=== PATIENT | male | born 1940 | race Caucasian/White ===

== ENCOUNTER 2017-06-25 10:54 | Observation (INO) ==
[2017-06-25] MEDS ORDERED: ENOXAPARIN 30 MG/0.3 ML SYRINGE SUBCUT STA (11:27)
[2017-06-25] MEDS ORDERED: NITROGLYCERIN 2% OINT 1 INCH/GM PACK TOP STA (11:28)
[2017-06-25] MEDS ORDERED: NITROGLYCERIN 2% OINT 1 INCH/GM PACK TOP ONE (11:52)
[2017-06-25] MEDS ORDERED: ENOXAPARIN 100 MG/ML SYRINGE SUBCUT ONE (11:52)
[2017-06-25 11:55] LABS: Basophils % 0.1 % (0.0-0.8); Hematocrit 37.4 VOL% (42.0-52.0); Immature Granulocytes % 0.7 %; Lymphocytes # 1.5 10*3/uL (1.4-4.0); Lymphocytes % 11.2 % (21.2-54.2); Mean Corpuscular HGB Conc 34.8 GM/DL (32-36); Mean Corpuscular Hemoglobin 31 PG (27-34); Mean Corpuscular Volume 88.8 FL (87-102); Monocytes # 0.8 10*3/uL (0.11-0.8); Monocytes % 5.5 % (1.7-12.7); Neutrophils # 11.2 10*3/uL (1.4-7.4); Neutrophils % 82.5 % (38.7-73.9); Platelet Count 229 T/CUMM (130-400); Red Blood Count 4.21 MC/CUMM (3.8-5.5); Red Cell Distribution Width 13.4 % (9.3-17.3); White Blood Count 13.6 T/CUMM (4-12)
[2017-06-25 12:07] LABS: PT Patient Result 10.8 SECS; Partial Thromboplastin Time 24.6 SECS (0-40)
[2017-06-25] MEDS ORDERED: CLORAZEPATE 7.5 MG TABLET PO STA (12:15)
[2017-06-25] MEDS ORDERED: CLORAZEPATE 7.5 MG TABLET ONE (12:16)
[2017-06-25 12:40] LABS: Bilirubin,Total 0.6 MG/DL (0.2-1.0); Calcium 9.8 MG/DL (8.5-10.1); Osmolality,Calculated 293.3 MOS/KG (273-304); Potassium 5.1 MMOL/L (3.5-5.1); Total Protein 7.1 G/DL (6.4-8.3)
[2017-06-25] MEDS ORDERED: LORazepam 1 MG TABLET PO STA (14:07)
[2017-06-25] MEDS ORDERED: LORazepam 1 MG TABLET ONE (14:08)
[2017-06-25] MEDS ORDERED: ACETAMINOPHEN 325 MG TABLET PO PRN (15:25)
[2017-06-25] MEDS ORDERED: ONDANSETRON 4 MG/2 ML VIAL IV PRN (15:25)
[2017-06-25] MEDS ORDERED: DEXTROSE 50% 25 GM/50 ML VIAL IV PRN (17:37)
[2017-06-25] MEDS ORDERED: GLUCAGON 1 MG VIAL IM PRN (17:37)
[2017-06-25 17:53] LABS: Troponin I Only 0.128 NG/ML (0.00-0.045)
[2017-06-25] MEDS ORDERED: rOPINIRole 1 MG TABLET PO SCH (20:00)
[2017-06-25] MEDS ORDERED: SIMVASTATIN 40 MG TABLET PO SCH (21:00)
[2017-06-25] MEDS ORDERED: GABAPENTIN 400 MG CAPSULE PO SCH (21:00)
[2017-06-25] MEDS ORDERED: ASPIRIN EC 81 MG TABLET PO SCH (21:00)
[2017-06-25 21:24] LABS: Troponin I Only 0.097 NG/ML (0.00-0.045)
[2017-06-25] MEDS: INSULIN LISPRO 100 UNIT/ML SUBCUT SCH (21:45)
[2017-06-25] MEDS: ISOSORBIDE MONONITRATE 20 MG TABLET PO SCH (21:51)
[2017-06-25] MEDS: CARVEDILOL 25 MG TABLET PO SCH (21:52)
[2017-06-25] MEDS: GABAPENTIN 400 MG CAPSULE PO SCH (21:52)
[2017-06-25] MEDS: PANTOPRAZOLE 40 MG TABLET PO SCH (21:52)
[2017-06-25] MEDS: DOCUSATE SODIUM 100 MG CAPSULE PO SCH (21:52)
[2017-06-25] MEDS ORDERED: ZALEPLON 5 MG CAPSULE PO PRN (22:25)
[2017-06-25] MEDS ORDERED: FAMOTIDINE 20 MG TABLET PO SCH (22:30)
[2017-06-26 04:33] LABS: Basophils % 0.1 % (0.0-0.8); Eosinophils % 0.1 % (0.00-10.9); Hemoglobin 13.3 GM/DL (14.0-18.0); Immature Granulocytes % 0.6 %; Immature Granulocytes Absolute 0.09 #; Lymphocytes # 2.1 10*3/uL (1.4-4.0); Lymphocytes % 14.5 % (21.2-54.2); Mean Corpuscular HGB Conc 33.3 GM/DL (32-36); Mean Corpuscular Hemoglobin 30 PG (27-34); Mean Corpuscular Volume 90.7 FL (87-102); Mean Platelet Volume 9.1 FL (9.6-12.0); Monocytes # 0.9 10*3/uL (0.11-0.8); Monocytes % 6.1 % (1.7-12.7); Neutrophils # 11.3 10*3/uL (1.4-7.4); Neutrophils % 78.6 % (38.7-73.9); Platelet Count 262 T/CUMM (130-400); Red Blood Count 4.41 MC/CUMM (3.8-5.5); Red Cell Distribution Width 13.5 % (9.3-17.3); White Blood Count 14.3 T/CUMM (4-12)
[2017-06-26 05:05] LABS: Calcium 9.7 MG/DL (8.5-10.1); Osmolality,Calculated 289.4 MOS/KG (273-304); Potassium 4.3 MMOL/L (3.5-5.1); Risk Ratio 4.8; VLDL CHOLESTEROL 73.6 MG/DL
[2017-06-26] MEDS: INSULIN LISPRO 100 UNIT/ML SUBCUT SCH ×2 (08:00→13:45)
[2017-06-26] MEDS ORDERED: CLORAZEPATE 3.75 MG TABLET PO PRN (08:02)
[2017-06-26] MEDS ORDERED: hydroCHLOROthiazide 25 MG TABLET PO SCH (09:00)
[2017-06-26] MEDS: GABAPENTIN 400 MG CAPSULE PO SCH ×2 (09:00→13:45)
[2017-06-26] MEDS ORDERED: LOSARTAN 50 MG TABLET PO SCH (09:00)
[2017-06-26] MEDS ORDERED: OMEGA 3 ACID ETHYL ESTERS 1 GM CAPSULE PO SCH (09:00)
[2017-06-26] MEDS ORDERED: DIGOXIN 0.125 MG TABLET PO SCH (09:00)
[2017-06-26 12:05] VITALS: BP 174/75
[2017-06-26] MEDS: PANTOPRAZOLE 40 MG TABLET PO SCH (13:45)
[2017-06-26] MEDS: DOCUSATE SODIUM 100 MG CAPSULE PO SCH (13:45)
[2017-06-26] MEDS: ISOSORBIDE MONONITRATE 20 MG TABLET PO SCH (13:45)
[2017-06-26] MEDS: CARVEDILOL 25 MG TABLET PO SCH (13:45)
== END 2017-06-26 14:05 | disposition home or self-care (01) ==
LOC: N.ED 10:54 → N.EDINP 10:54 → N.TELES 15:25
PROVIDERS: ADMIT Internal Medicine; ATTEND Internal Medicine

== ENCOUNTER 2018-03-31 00:05 | Inpatient (IN) ==
[2018-03-31] MEDS ORDERED: ALBUTEROL/IPRATROPIUM 3 ML NEB RESP TX STA (00:21)
[2018-03-31] MEDS ORDERED: ACETAMINOPHEN 500 MG TABLET PO STA (00:21)
[2018-03-31] MEDS ORDERED: CEFTAROLINE 600 MG in SODIUM CHLORIDE 0.9% 100 ML IV STA (00:23)
[2018-03-31 00:51] LABS: Basophils % 0.2 % (0.0-0.8); Eosinophils # 0.1 10*3/uL (0.0-0.87); Eosinophils % 0.4 % (0.00-10.9); Hematocrit 35.7 VOL% (42.0-52.0); Immature Granulocytes % 0.3 %; Immature Granulocytes Absolute 0.04 #; Lymphocytes % 6.8 % (21.2-54.2); Mean Corpuscular HGB Conc 33.6 GM/DL (32-36); Mean Corpuscular Hemoglobin 31 PG (27-34); Mean Corpuscular Volume 91.1 FL (87-102); Monocytes # 1.4 10*3/uL (0.11-0.8); Monocytes % 10.4 % (1.7-12.7); Neutrophils # 11.4 10*3/uL (1.4-7.4); Neutrophils % 81.9 % (38.7-73.9); Platelet Count 189 T/CUMM (130-400); Red Blood Count 3.92 MC/CUMM (3.8-5.5); Red Cell Distribution Width 13.7 % (9.3-17.3); White Blood Count 13.9 T/CUMM (4-12)
[2018-03-31 00:58] LABS: INR 1.8; PT Patient Result 19.8 SECS
[2018-03-31 01:49] LABS: Alanine Aminotransferase 32 U/L (16-61); Albumin 3.8 G/DL (3.4-5.0); Alkaline Phosphatase 78 U/L (45-117); Amylase 37 U/L (25-115); Aspartate Amino Transferase 18 U/L (0-37); Blood Urea Nitrogen 22 MG/DL (7-18); Calcium 8.8 MG/DL (8.5-10.1); Glucose 141 MG/DL (74-106); Osmolality,Calculated 274.1 MOS/KG (273-304); Potassium 4.4 MMOL/L (3.5-5.1); Sodium 135 MMOL/L (136-145); Total Protein 7.6 G/DL (6.4-8.3); Troponin I < 0.015 NG/ML (0.00-0.045)
[2018-03-31 02:00] LABS: Sedimentation Rate-Westergren 50 MM/HR (0-20)
[2018-03-31] MEDS ORDERED: ACETAMINOPHEN 325 MG TABLET PO PRN (03:19)
[2018-03-31] MEDS ORDERED: GLUCAGON 1 MG VIAL IM PRN (03:19)
[2018-03-31] MEDS ORDERED: traZODone 50 MG TABLET PO STA (03:19)
[2018-03-31] MEDS ORDERED: LACTULOSE 20 GM/30 ML UDCUP PO PRN (03:19)
[2018-03-31] MEDS: ALBUTEROL/IPRATROPIUM 3 ML NEB RESP TX SCH ×6 (03:30→23:45)
[2018-03-31] MEDS ORDERED: WARFARIN 5 MG TABLET PO SCH ×2 (04:00)
[2018-03-31] MEDS: SODIUM CHLORIDE 0.9% 1,000 ML IV SCH ×2 (05:46→22:20)
[2018-03-31 07:32] LABS: Basophils % 0.2 % (0.0-0.8); Hematocrit 33.7 VOL% (42.0-52.0); Hemoglobin 11.3 GM/DL (14.0-18.0); Immature Granulocytes % 0.5 %; Immature Granulocytes Absolute 0.11 #; Lymphocytes # 1.9 10*3/uL (1.4-4.0); Lymphocytes % 8.8 % (21.2-54.2); Mean Corpuscular HGB Conc 33.5 GM/DL (32-36); Mean Corpuscular Hemoglobin 31 PG (27-34); Mean Corpuscular Volume 92.6 FL (87-102); Mean Platelet Volume 9.4 FL (9.6-12.0); Monocytes # 2.8 10*3/uL (0.11-0.8); Monocytes % 13.1 % (1.7-12.7); Neutrophils # 16.4 10*3/uL (1.4-7.4); Neutrophils % 77.4 % (38.7-73.9); Platelet Count 196 T/CUMM (130-400); Red Blood Count 3.64 MC/CUMM (3.8-5.5); Red Cell Distribution Width 13.8 % (9.3-17.3); White Blood Count 21.2 T/CUMM (4-12)
[2018-03-31 07:40] LABS: INR 1.7
[2018-03-31 07:59] LABS: Band Neutrophils 3 % (0-10); Hypochromasia 1+; Lymphocytes 5 % (20-55); Platelet Estimate Adequate; Segmented Neutrophils 82 % (50-85); Total Cells Counted 100
[2018-03-31] MEDS ORDERED: metFORMIN 500 MG TABLET PO SCH (08:00)
[2018-03-31] MEDS ORDERED: MELOXICAM 7.5 MG TABLET PO SCH (08:00)
[2018-03-31 08:04] LABS: Albumin 3.4 G/DL (3.4-5.0); Bilirubin,Total 1.1 MG/DL (0.2-1.0); Calcium 8.7 MG/DL (8.5-10.1); Osmolality,Calculated 277.8 MOS/KG (273-304); Total Protein 7.1 G/DL (6.4-8.3)
[2018-03-31] MEDS ORDERED: CLINDAMYCIN 300 MG CAPSULE PO SCH (09:00)
[2018-03-31] MEDS ORDERED: NON-FORMULARY MEDICATION (Omeprazole [Omeprazole] 20 MG) PO SCH (09:00)
[2018-03-31] MEDS: DOCUSATE SODIUM 100 MG CAPSULE PO SCH ×2 (09:48→21:17)
[2018-03-31] MEDS: GABAPENTIN 400 MG CAPSULE PO SCH ×5 (09:49→22:22)
[2018-03-31] MEDS: GLIMEPIRIDE 4 MG TABLET PO SCH ×2 (09:49→17:36)
[2018-03-31] MEDS: ISOSORBIDE MONONITRATE 20 MG TABLET PO SCH ×2 (09:49→21:18)
[2018-03-31] MEDS: SERTRALINE 25 MG TABLET PO SCH (09:50)
[2018-03-31] MEDS: CARVEDILOL 25 MG TABLET PO SCH ×2 (09:50→17:36)
[2018-03-31] MEDS: PANTOPRAZOLE 40 MG TABLET PO SCH ×2 (09:50→21:19)
[2018-03-31] MEDS: OMEGA 3 ACID ETHYL ESTERS 1 GM CAPSULE PO SCH (09:50)
[2018-03-31] MEDS: LOSARTAN 50 MG TABLET PO SCH (09:51)
[2018-03-31] MEDS: hydroCHLOROthiazide 12.5 MG CAPSULE PO SCH (09:51)
[2018-03-31] MEDS: INSULIN REGULAR 100 UNIT/ML SUBCUT SCH ×4 (09:58→22:22)
[2018-03-31] MEDS: DIGOXIN 0.125 MG TABLET PO SCH (12:39)
[2018-03-31] MEDS: VANCOMYCIN INJ 1,500 MG in SODIUM CHLORIDE 0.9% 500 ML IV SCH (12:40)
[2018-03-31] MEDS: CEFTAROLINE 600 MG in SODIUM CHLORIDE 0.9% 100 ML IV SCH (15:00)
[2018-03-31] MEDS ORDERED: MAGNESIUM SULF RIDER 4 GM in PREMIX 1 EACH IV PRN (17:03)
[2018-03-31] MEDS ORDERED: MAGNESIUM SULF RIDER 2 GM in PREMIX 1 EACH IV PRN (17:03)
[2018-03-31] MEDS: WARFARIN 2.5 MG TABLET PO SCH (17:19)
[2018-03-31] MEDS: SIMVASTATIN 40 MG TABLET PO SCH (21:19)
[2018-03-31] MEDS: ASCORBIC ACID 500 MG TABLET PO SCH (21:19)
[2018-03-31] MEDS: ASPIRIN EC 81 MG TABLET PO SCH (21:20)
[2018-03-31] MEDS: rOPINIRole 1 MG TABLET PO SCH (21:22)
[2018-04-01] MEDS: CEFTAROLINE 600 MG in SODIUM CHLORIDE 0.9% 100 ML IV SCH (00:35)
[2018-04-01] MEDS: ALBUTEROL/IPRATROPIUM 3 ML NEB RESP TX SCH ×6 (03:33→22:42)
[2018-04-01 06:07] LABS: Basophils % 0.3 % (0.0-0.8); Eosinophils # 0.1 10*3/uL (0.0-0.87); Hematocrit 33.8 VOL% (42.0-52.0); Hemoglobin 10.8 GM/DL (14.0-18.0); Immature Granulocytes % 0.5 %; Immature Granulocytes Absolute 0.07 #; Lymphocytes % 14.2 % (21.2-54.2); Mean Corpuscular Hemoglobin 30 PG (27-34); Mean Corpuscular Volume 93.4 FL (87-102); Monocytes # 1.4 10*3/uL (0.11-0.8); Monocytes % 10.4 % (1.7-12.7); Neutrophils # 10.2 10*3/uL (1.4-7.4); Neutrophils % 73.6 % (38.7-73.9); Platelet Count 179 T/CUMM (130-400); Red Blood Count 3.62 MC/CUMM (3.8-5.5); Red Cell Distribution Width 13.8 % (9.3-17.3); White Blood Count 13.8 T/CUMM (4-12)
[2018-04-01 06:15] LABS: INR 1.3; PT Patient Result 13.9 SECS
[2018-04-01 06:23] LABS: Calcium 8.6 MG/DL (8.5-10.1); Osmolality,Calculated 277.7 MOS/KG (273-304)
[2018-04-01] MEDS: INSULIN REGULAR 100 UNIT/ML SUBCUT SCH ×4 (07:30→21:30)
[2018-04-01] MEDS: DEXTROSE 50% 25 GM/50 ML SYRINGE IV PRN ×2 (08:15→12:16)
[2018-04-01] MEDS: SODIUM CHLORIDE 0.9% 1,000 ML IV SCH (09:45)
[2018-04-01] MEDS: CARVEDILOL 25 MG TABLET PO SCH ×2 (10:49→19:10)
[2018-04-01] MEDS: GLIMEPIRIDE 4 MG TABLET PO SCH ×2 (10:49→19:10)
[2018-04-01] MEDS: DOCUSATE SODIUM 100 MG CAPSULE PO SCH ×2 (10:50→22:18)
[2018-04-01] MEDS: ISOSORBIDE MONONITRATE 20 MG TABLET PO SCH ×2 (10:50→22:17)
[2018-04-01] MEDS: PANTOPRAZOLE 40 MG TABLET PO SCH ×2 (10:50→22:17)
[2018-04-01] MEDS: hydroCHLOROthiazide 12.5 MG CAPSULE PO SCH (10:50)
[2018-04-01] MEDS: OMEGA 3 ACID ETHYL ESTERS 1 GM CAPSULE PO SCH (10:50)
[2018-04-01] MEDS: GABAPENTIN 400 MG CAPSULE PO SCH ×5 (10:50→22:21)
[2018-04-01] MEDS: LOSARTAN 50 MG TABLET PO SCH (10:50)
[2018-04-01] MEDS: SERTRALINE 25 MG TABLET PO SCH (10:51)
[2018-04-01] MEDS: ASCORBIC ACID 500 MG TABLET PO SCH ×2 (10:51→22:16)
[2018-04-01] MEDS: VANCOMYCIN INJ 1,500 MG in SODIUM CHLORIDE 0.9% 500 ML IV SCH (11:03)
[2018-04-01] MEDS ORDERED: DEXTROSE 50% 25 GM/50 ML VIAL IV ONE (12:08)
[2018-04-01] MEDS ORDERED: LIDOCAINE 1% 20 ML VIAL ONE (12:41)
[2018-04-01] MEDS: DIGOXIN 0.125 MG TABLET PO SCH (14:22)
[2018-04-01] MEDS ORDERED: DEXTROSE 50% 25 GM/50 ML VIAL IV PRN (15:23)
[2018-04-01] MEDS ORDERED: GLUCAGON 1 MG VIAL IM PRN (15:23)
[2018-04-01] MEDS ORDERED: PROPOFOL 200 MG/20 ML VIAL IV ONE (15:34)
[2018-04-01] MEDS ORDERED: fentaNYL 100 MCG/2 ML VIAL ONE (15:34)
[2018-04-01] MEDS ORDERED: SEVOFLURANE 1 UNIT/15 MINUTE INH ONE (15:34)
[2018-04-01] MEDS ORDERED: HYDROmorphone 2 MG/1 ML VIAL ONE (15:36)
[2018-04-01] MEDS ORDERED: ONDANSETRON 4 MG/2 ML VIAL ONE (15:36)
[2018-04-01] MEDS: HYDROmorphone 2 MG/1 ML VIAL IV PRN ×4 (15:38→16:00)
[2018-04-01] MEDS: ONDANSETRON 4 MG/2 ML VIAL IV PRN (15:38)
[2018-04-01] MEDS ORDERED: MEPERIDINE 25 MG/1 ML VIAL IV PRN (15:51)
[2018-04-01] MEDS: MORPHINE 4 MG/1 ML VIAL IV PRN (17:45)
[2018-04-01] MEDS: rOPINIRole 1 MG TABLET PO SCH (22:16)
[2018-04-01] MEDS: SIMVASTATIN 40 MG TABLET PO SCH (22:17)
[2018-04-01] MEDS: ASPIRIN EC 81 MG TABLET PO SCH (22:17)
[2018-04-02] MEDS: WARFARIN 5 MG TABLET PO SCH (01:06)
[2018-04-02] MEDS: ALBUTEROL/IPRATROPIUM 3 ML NEB RESP TX SCH ×5 (02:32→19:41)
[2018-04-02] MEDS: MORPHINE 4 MG/1 ML VIAL IV PRN ×2 (04:40→20:18)
[2018-04-02 06:30] LABS: Basophils % 0.3 % (0.0-0.8); Eosinophils # 0.2 10*3/uL (0.0-0.87); Eosinophils % 1.3 % (0.00-10.9); Hematocrit 31.8 VOL% (42.0-52.0); Hemoglobin 10.1 GM/DL (14.0-18.0); Immature Granulocytes % 0.4 %; Immature Granulocytes Absolute 0.05 #; Lymphocytes # 1.6 10*3/uL (1.4-4.0); Lymphocytes % 14.1 % (21.2-54.2); Mean Corpuscular HGB Conc 31.8 GM/DL (32-36); Mean Corpuscular Hemoglobin 30 PG (27-34); Mean Corpuscular Volume 95.2 FL (87-102); Monocytes # 1.4 10*3/uL (0.11-0.8); Monocytes % 11.8 % (1.7-12.7); Neutrophils # 8.4 10*3/uL (1.4-7.4); Neutrophils % 72.1 % (38.7-73.9); Platelet Count 186 T/CUMM (130-400); Red Blood Count 3.34 MC/CUMM (3.8-5.5); Red Cell Distribution Width 13.6 % (9.3-17.3); White Blood Count 11.6 T/CUMM (4-12)
[2018-04-02 06:49] LABS: INR 1.2; PT Patient Result 13.3 SECS
[2018-04-02 06:51] LABS: Calcium 8.7 MG/DL (8.5-10.1); Osmolality,Calculated 279.7 MOS/KG (273-304); Potassium 4.3 MMOL/L (3.5-5.1)
[2018-04-02] MEDS: INSULIN REGULAR 100 UNIT/ML SUBCUT SCH ×3 (08:40→17:25)
[2018-04-02] MEDS: DOCUSATE SODIUM 100 MG CAPSULE PO SCH ×2 (09:12→20:13)
[2018-04-02] MEDS: OMEGA 3 ACID ETHYL ESTERS 1 GM CAPSULE PO SCH (09:12)
[2018-04-02] MEDS: hydroCHLOROthiazide 12.5 MG CAPSULE PO SCH (09:12)
[2018-04-02] MEDS: GABAPENTIN 400 MG CAPSULE PO SCH ×3 (09:12→20:13)
[2018-04-02] MEDS: GLIMEPIRIDE 4 MG TABLET PO SCH (09:13)
[2018-04-02] MEDS: ISOSORBIDE MONONITRATE 20 MG TABLET PO SCH ×2 (09:13→20:13)
[2018-04-02] MEDS: CARVEDILOL 25 MG TABLET PO SCH (09:13)
[2018-04-02] MEDS: LOSARTAN 50 MG TABLET PO SCH (09:13)
[2018-04-02] MEDS: PANTOPRAZOLE 40 MG TABLET PO SCH ×2 (09:13→20:14)
[2018-04-02] MEDS: ASCORBIC ACID 500 MG TABLET PO SCH ×2 (09:19→20:14)
[2018-04-02] MEDS: SERTRALINE 50 MG TABLET PO SCH (09:20)
[2018-04-02] MEDS: VANCOMYCIN INJ 1,500 MG in SODIUM CHLORIDE 0.9% 500 ML IV SCH (10:24)
[2018-04-02] MEDS ORDERED: MAGNESIUM SULF RIDER 4 GM in PREMIX 1 EACH IV PRN (10:49)
[2018-04-02] MEDS ORDERED: MAGNESIUM SULF RIDER 2 GM in PREMIX 1 EACH IV PRN (10:49)
[2018-04-02] MEDS: DIGOXIN 0.125 MG TABLET PO SCH (14:33)
[2018-04-02] MEDS: SODIUM CHLORIDE 0.9% 1,000 ML IV SCH (15:32)
[2018-04-02] MEDS: rOPINIRole 1 MG TABLET PO SCH (20:13)
[2018-04-02] MEDS: ASPIRIN EC 81 MG TABLET PO SCH (20:13)
[2018-04-02] MEDS: traZODone 50 MG TABLET PO PRN (20:14)
[2018-04-02] MEDS: SIMVASTATIN 40 MG TABLET PO SCH (20:14)
[2018-04-03] MEDS: ALBUTEROL/IPRATROPIUM 3 ML NEB RESP TX SCH ×7 (00:25→23:47)
[2018-04-03] MEDS: GABAPENTIN 400 MG CAPSULE PO SCH ×7 (01:49→20:45)
[2018-04-03] MEDS: INSULIN REGULAR 100 UNIT/ML SUBCUT SCH ×5 (01:50→20:53)
[2018-04-03 05:24] LABS: INR 1.5; PT Patient Result 15.8 SECS
[2018-04-03 05:29] LABS: Calcium 8.5 MG/DL (8.5-10.1); Osmolality,Calculated 278.5 MOS/KG (273-304); Potassium 4.1 MMOL/L (3.5-5.1)
[2018-04-03] MEDS: CARVEDILOL 25 MG TABLET PO SCH ×3 (11:00→17:49)
[2018-04-03] MEDS: GLIMEPIRIDE 4 MG TABLET PO SCH ×3 (11:00→17:49)
[2018-04-03] MEDS: DOCUSATE SODIUM 100 MG CAPSULE PO SCH ×2 (11:17→20:17)
[2018-04-03] MEDS: ISOSORBIDE MONONITRATE 20 MG TABLET PO SCH ×2 (11:17→20:17)
[2018-04-03] MEDS: hydroCHLOROthiazide 12.5 MG CAPSULE PO SCH (11:17)
[2018-04-03] MEDS: ASCORBIC ACID 500 MG TABLET PO SCH ×2 (11:18→20:17)
[2018-04-03] MEDS: PANTOPRAZOLE 40 MG TABLET PO SCH ×2 (11:18→20:17)
[2018-04-03] MEDS: SERTRALINE 50 MG TABLET PO SCH (11:19)
[2018-04-03] MEDS: OMEGA 3 ACID ETHYL ESTERS 1 GM CAPSULE PO SCH (11:20)
[2018-04-03] MEDS: LOSARTAN 50 MG TABLET PO SCH (11:21)
[2018-04-03] MEDS: VANCOMYCIN INJ 1,500 MG in SODIUM CHLORIDE 0.9% 500 ML IV SCH (11:26)
[2018-04-03] MEDS: DIGOXIN 0.125 MG TABLET PO SCH (14:36)
[2018-04-03] MEDS: WARFARIN 5 MG TABLET PO SCH (17:49)
[2018-04-03] MEDS: ASPIRIN EC 81 MG TABLET PO SCH (20:16)
[2018-04-03] MEDS: SIMVASTATIN 40 MG TABLET PO SCH (20:17)
[2018-04-03] MEDS: rOPINIRole 1 MG TABLET PO SCH (20:17)
[2018-04-03] MEDS: SODIUM CHLORIDE 0.9% 1,000 ML IV SCH (20:18)
[2018-04-03] MEDS: traZODone 50 MG TABLET PO PRN (20:18)
[2018-04-03] MEDS: MORPHINE 4 MG/1 ML VIAL IV PRN (20:22)
[2018-04-04] MEDS: ONDANSETRON 4 MG/2 ML VIAL IV PRN (01:09)
[2018-04-04] MEDS: MORPHINE 4 MG/1 ML VIAL IV PRN ×3 (01:10→10:57)
[2018-04-04] MEDS: ALBUTEROL/IPRATROPIUM 3 ML NEB RESP TX SCH ×6 (03:52→23:00)
[2018-04-04 04:37] LABS: Basophils % 0.3 % (0.0-0.8); Eosinophils # 0.5 10*3/uL (0.0-0.87); Eosinophils % 5.9 % (0.00-10.9); Hematocrit 29.5 VOL% (42.0-52.0); Hemoglobin 9.4 GM/DL (14.0-18.0); Immature Granulocytes % 0.4 %; Immature Granulocytes Absolute 0.04 #; Lymphocytes # 1.8 10*3/uL (1.4-4.0); Lymphocytes % 19.7 % (21.2-54.2); Mean Corpuscular HGB Conc 31.9 GM/DL (32-36); Mean Corpuscular Hemoglobin 30 PG (27-34); Mean Corpuscular Volume 93.9 FL (87-102); Mean Platelet Volume 9.5 FL (9.6-12.0); Monocytes # 0.9 10*3/uL (0.11-0.8); Monocytes % 10.2 % (1.7-12.7); Neutrophils # 5.9 10*3/uL (1.4-7.4); Neutrophils % 63.5 % (38.7-73.9); Platelet Count 216 T/CUMM (130-400); Red Blood Count 3.14 MC/CUMM (3.8-5.5); Red Cell Distribution Width 13.5 % (9.3-17.3); White Blood Count 9.2 T/CUMM (4-12)
[2018-04-04] MEDS: VANCOMYCIN INJ 1,500 MG in SODIUM CHLORIDE 0.9% 500 ML IV SCH ×2 (04:37→22:22)
[2018-04-04 04:44] LABS: INR 1.5; PT Patient Result 16.2 SECS
[2018-04-04 05:00] LABS: Calcium 8.6 MG/DL (8.5-10.1); Osmolality,Calculated 281.1 MOS/KG (273-304); Potassium 3.6 MMOL/L (3.5-5.1)
[2018-04-04] MEDS: INSULIN REGULAR 100 UNIT/ML SUBCUT SCH ×4 (08:06→21:40)
[2018-04-04] MEDS: GABAPENTIN 400 MG CAPSULE PO SCH ×4 (09:08→22:07)
[2018-04-04] MEDS: CARVEDILOL 25 MG TABLET PO SCH ×2 (09:08→16:31)
[2018-04-04] MEDS: LOSARTAN 50 MG TABLET PO SCH (09:08)
[2018-04-04] MEDS: PANTOPRAZOLE 40 MG TABLET PO SCH ×2 (09:08→22:07)
[2018-04-04] MEDS: SERTRALINE 50 MG TABLET PO SCH (09:09)
[2018-04-04] MEDS: ASCORBIC ACID 500 MG TABLET PO SCH ×2 (09:09→22:07)
[2018-04-04] MEDS: OMEGA 3 ACID ETHYL ESTERS 1 GM CAPSULE PO SCH (09:09)
[2018-04-04] MEDS: DOCUSATE SODIUM 100 MG CAPSULE PO SCH ×2 (09:09→22:07)
[2018-04-04] MEDS: ISOSORBIDE MONONITRATE 20 MG TABLET PO SCH ×2 (09:09→22:06)
[2018-04-04] MEDS: GLIMEPIRIDE 4 MG TABLET PO SCH ×2 (09:09→16:31)
[2018-04-04] MEDS: hydroCHLOROthiazide 12.5 MG CAPSULE PO SCH (09:09)
[2018-04-04] MEDS: SODIUM CHLORIDE 0.9% 1,000 ML IV SCH ×3 (09:33→13:28)
[2018-04-04 11:57] LABS: Apearance,Urine Slightly Hazy (Clear); Bilirubin,Urine Negative (Negative); Blood, Urine Negative (Negative); Glucose,Urine (UA) Negative (Negative); Hyaline Casts,Urine 3 /LPF (0-3); Ketones,Urine Negative (Negative); Nitrite,Urine Negative (Negative); Protein,Urine Negative; RBC,Urine 1 /HPF (0-4); Urine Color Yellow (Yellow); Urine Specific Gravity 1.014 (1.001-1.035); Urine Urobilinogen < 2.0 EU/DL (0.2-1.0)
[2018-04-04] MEDS: DIGOXIN 0.125 MG TABLET PO SCH (13:24)
[2018-04-04] MEDS ORDERED: WARFARIN 2 MG TABLET PO ONE (16:00)
[2018-04-04] MEDS: WARFARIN 5 MG TABLET PO SCH (18:25)
[2018-04-04] MEDS: rOPINIRole 1 MG TABLET PO SCH (22:06)
[2018-04-04] MEDS: ASPIRIN EC 81 MG TABLET PO SCH (22:07)
[2018-04-04] MEDS: SIMVASTATIN 40 MG TABLET PO SCH (22:07)
[2018-04-05] MEDS: ALBUTEROL/IPRATROPIUM 3 ML NEB RESP TX SCH ×5 (03:46→19:57)
[2018-04-05] MEDS: GABAPENTIN 400 MG CAPSULE PO SCH ×6 (06:34→22:33)
[2018-04-05 07:30] LABS: INR 1.9; PT Patient Result 20.8 SECS
[2018-04-05] MEDS: INSULIN REGULAR 100 UNIT/ML SUBCUT SCH ×4 (08:10→21:10)
[2018-04-05] MEDS: GLIMEPIRIDE 4 MG TABLET PO SCH ×2 (09:48→17:11)
[2018-04-05] MEDS: ASCORBIC ACID 500 MG TABLET PO SCH ×2 (09:49→22:31)
[2018-04-05] MEDS: PANTOPRAZOLE 40 MG TABLET PO SCH ×2 (09:49→22:29)
[2018-04-05] MEDS: busPIRone 5 MG TABLET PO SCH ×3 (09:49→22:30)
[2018-04-05] MEDS: OMEGA 3 ACID ETHYL ESTERS 1 GM CAPSULE PO SCH (09:50)
[2018-04-05] MEDS: hydroCHLOROthiazide 12.5 MG CAPSULE PO SCH (09:50)
[2018-04-05] MEDS: SERTRALINE 50 MG TABLET PO SCH (09:50)
[2018-04-05] MEDS: ISOSORBIDE MONONITRATE 20 MG TABLET PO SCH ×2 (09:50→22:29)
[2018-04-05] MEDS: DOCUSATE SODIUM 100 MG CAPSULE PO SCH ×2 (09:50→22:31)
[2018-04-05] MEDS: CARVEDILOL 25 MG TABLET PO SCH ×2 (09:51→16:03)
[2018-04-05] MEDS: LOSARTAN 50 MG TABLET PO SCH ×2 (09:51→22:32)
[2018-04-05] MEDS: DIGOXIN 0.125 MG TABLET PO SCH (13:04)
[2018-04-05] MEDS ORDERED: ALPRAZolam 0.25 MG TABLET PO PRN (14:01)
[2018-04-05] MEDS: VANCOMYCIN INJ 1,500 MG in SODIUM CHLORIDE 0.9% 500 ML IV SCH (16:03)
[2018-04-05] MEDS: WARFARIN 2.5 MG TABLET PO SCH ×3 (17:11→17:17)
[2018-04-05] MEDS: rOPINIRole 1 MG TABLET PO SCH (19:25)
[2018-04-05] MEDS: ASPIRIN EC 81 MG TABLET PO SCH (22:31)
[2018-04-05] MEDS: SIMVASTATIN 40 MG TABLET PO SCH (22:31)
[2018-04-06] MEDS: ALBUTEROL/IPRATROPIUM 3 ML NEB RESP TX SCH ×3 (00:28→07:25)
[2018-04-06] MEDS: INSULIN REGULAR 100 UNIT/ML SUBCUT SCH (08:50)
[2018-04-06] MEDS: ASCORBIC ACID 500 MG TABLET PO SCH (08:51)
[2018-04-06] MEDS: busPIRone 5 MG TABLET PO SCH (08:52)
[2018-04-06] MEDS: ISOSORBIDE MONONITRATE 20 MG TABLET PO SCH (08:52)
[2018-04-06] MEDS: PANTOPRAZOLE 40 MG TABLET PO SCH (08:52)
[2018-04-06] MEDS: hydroCHLOROthiazide 12.5 MG CAPSULE PO SCH (08:52)
[2018-04-06] MEDS: OMEGA 3 ACID ETHYL ESTERS 1 GM CAPSULE PO SCH (08:52)
[2018-04-06 08:53] LABS: PT Patient Result 22.1 SECS
[2018-04-06] MEDS: GABAPENTIN 400 MG CAPSULE PO SCH (08:53)
[2018-04-06] MEDS: SERTRALINE 50 MG TABLET PO SCH (08:53)
[2018-04-06] MEDS: GLIMEPIRIDE 4 MG TABLET PO SCH (08:53)
[2018-04-06] MEDS: CARVEDILOL 25 MG TABLET PO SCH (08:53)
[2018-04-06] MEDS: DOCUSATE SODIUM 100 MG CAPSULE PO SCH (08:53)
[2018-04-06] MEDS: LOSARTAN 50 MG TABLET PO SCH (08:54)
[2018-04-06 08:57] LABS: Calcium 8.9 MG/DL (8.5-10.1); Osmolality,Calculated 283.1 MOS/KG (273-304); Potassium 3.6 MMOL/L (3.5-5.1)
[2018-04-06 11:59] VITALS: BP 148/58
== END 2018-04-06 11:53 | DRG 617 ==
LOC: EDUNIT# → EDBD → N.ED 00:05 → N.EDINP 01:42 → N.5E 02:48
PROVIDERS: ADMIT Internal Medicine; ATTEND Internal Medicine

== ENCOUNTER 2021-12-02 13:18 | Inpatient (IN) ==
[2021-12-02 14:33] LABS: Basophils # 0.1 10*3/uL (0.0-0.2); Basophils % 0.6 % (0.0-0.8); Eosinophils # 0.5 10*3/uL (0.0-0.87); Eosinophils % 3.7 % (0.00-10.9); Hematocrit 37.4 VOL% (42.0-52.0); Hemoglobin 11.7 GM/DL (14.0-18.0); Immature Granulocytes % 0.6 %; Immature Granulocytes Absolute 0.07 #; Lymphocytes # 1.4 10*3/uL (1.4-4.0); Lymphocytes % 11.4 % (21.2-54.2); Mean Corpuscular HGB Conc 31.3 GM/DL (32-36); Mean Corpuscular Volume 95.4 FL (87-102); Mean Platelet Volume 9.4 FL (9.6-12.0); Monocytes # 0.7 10*3/uL (0.11-0.8); Monocytes % 6.1 % (1.7-12.7); Neutrophils % 77.6 % (38.7-73.9); Platelet Count 182 T/CUMM (130-400); Red Blood Count 3.92 MC/CUMM (3.8-5.5); Red Cell Distribution Width 14.7 % (9.3-17.3)
[2021-12-02] MEDS ORDERED: CALCIUM CHLORIDE 1,000 MG/10 ML SYRINGE IV STA (14:43)
[2021-12-02] MEDS ORDERED: SODIUM BICARBONATE 50 MEQ/50 ML VIAL IV STA (14:43)
[2021-12-02 14:44] LABS: PT Patient Result 20.9 SECS (10.1-12.1); Partial Thromboplastin Time 33.3 SECS (23.7-32.9)
[2021-12-02] MEDS ORDERED: INSULIN REGULAR 100 UNIT/ML IV STA (14:44)
[2021-12-02] MEDS ORDERED: DEXTROSE 50% 25 GM/50 ML VIAL IV STA (14:44)
[2021-12-02] MEDS ORDERED: DEXTROSE 50% 25 GM/50 ML SYRINGE IV STA (14:47)
[2021-12-02 14:57] LABS: Albumin 3.6 G/DL (3.4-5.0); Bilirubin,Total 0.6 MG/DL (0.20-1.00); Calcium 8.6 MG/DL (8.5-10.1); Osmolality,Calculated 311.4 MOS/KG (273-304); Thyroid Stimulating Hormone 2.04 uIU/ml (0.358-3.74)
[2021-12-02 15:00] LABS: Potassium 6.8 MMOL/L (3.5-5.1)
[2021-12-02] MEDS ORDERED: SODIUM ZIRCONIUM CYCLOSILICATE 10 GM PACK PO SCH (16:00)
[2021-12-02 16:07] LABS: Arterial Base Excess iSTAT -7 MMOL/L (-2.5-2.5); Arterial Bicarbonate iSTAT 23.6 MMOL/L (20-26); Arterial O2 Saturation iSTAT 90 % (95-100); Arterial PCO2 iSTAT 72 MM HG (35-48); Arterial PO2 iSTAT 79 MM HG (80-95); Arterial Total CO2 iSTAT 26 MMO/L (23-27); Arterial pH iSTAT 7.122 (7.35-7.45)
[2021-12-02] MEDS ORDERED: hydrALAZINE 20 MG/1 ML VIAL IV PRN (16:10)
[2021-12-02] MEDS ORDERED: ALBUTEROL 2.5 MG/3 ML NEB RESP TX PRN (16:10)
[2021-12-02] MEDS: SODIUM CHLORIDE 0.9% 1,000 ML IV SCH (17:20)
[2021-12-02] MEDS: methylPREDNISolone SOD SUC 40 MG/1 ML VIAL IV SCH (17:25)
[2021-12-02 18:58] LABS: Bilirubin,Urine Negative (Negative); Blood, Urine Negative (Negative); Glucose,Urine (UA) 100 mg/dL (Negative); Ketones,Urine Negative (Negative); Nitrite,Urine Negative (Negative); Protein,Urine Negative (Negative); Urine Appearance Clear (Clear); Urine Color Yellow (Yellow); Urine Urobilinogen 0.2 eU/dL (<2.0)
[2021-12-02 19:04] LABS: Hyaline Casts,Urine 4 /LPF (0-3); Mucus,Urine Occasional /LPF (Occasional); RBC,Urine 2 /HPF (0-4)
[2021-12-02] MEDS: ALBUTEROL/IPRATROPIUM 3 ML NEB RESP TX SCH (19:10)
[2021-12-02] MEDS: AZITHROMYCIN INJ 500 MG in SODIUM CHLORIDE 0.9% 250 ML IV SCH (20:48)
[2021-12-02] MEDS ORDERED: FUROSEMIDE 40 MG TABLET PO SCH (21:00)
[2021-12-02] MEDS ORDERED: ASPIRIN EC 81 MG TABLET PO SCH (21:00)
[2021-12-02] MEDS ORDERED: carvediloL 25 MG TABLET PO SCH (21:00)
[2021-12-02] MEDS ORDERED: INSULIN REGULAR 10 UNIT, CALCIUM GLUCONATE 1,000 MG in DEXTROSE 10% 250 ML IV ONE (21:17)
[2021-12-02] MEDS ORDERED: SODIUM BICARBONATE 50 MEQ/50 ML VIAL IV ONE (21:17)
[2021-12-02] MEDS ORDERED: SODIUM POLYSTYRENE SULFATE 15 GM/60 ML BOTTLE RECTAL ONE (21:18)
[2021-12-02] MEDS: SIMVASTATIN 40 MG TABLET PO SCH (22:03)
[2021-12-02] MEDS ORDERED: SODIUM ZIRCONIUM CYCLOSILICATE 10 GM PACK PO ONE (23:02)
[2021-12-02 23:27] LABS: Arterial Base Excess iSTAT -7 MMOL/L (-2.5-2.5); Arterial Bicarbonate iSTAT 21.3 MMOL/L (20-26); Arterial O2 Saturation iSTAT 92 % (95-100); Arterial PCO2 iSTAT 56 MM HG (35-48); Arterial PO2 iSTAT 79 MM HG (80-95); Arterial Total CO2 iSTAT 23 MMO/L (23-27); Arterial pH iSTAT 7.187 (7.35-7.45)
[2021-12-03] MEDS: methylPREDNISolone SOD SUC 40 MG/1 ML VIAL IV SCH ×5 (00:07→23:34)
[2021-12-03] MEDS: PANTOPRAZOLE 40 MG VIAL IV SCH ×2 (00:09→20:23)
[2021-12-03] MEDS: WARFARIN 2.5 MG TABLET PO SCH (00:09)
[2021-12-03] MEDS: ALBUTEROL/IPRATROPIUM 3 ML NEB RESP TX SCH ×4 (01:26→19:32)
[2021-12-03 03:56] LABS: Mucus,Urine Occasional /LPF (Occasional); RBC,Urine 1 /HPF (0-4)
[2021-12-03 03:57] LABS: Bilirubin,Urine Negative (Negative); Blood, Urine Negative (Negative); Glucose,Urine (UA) Negative (Negative); Ketones,Urine Negative (Negative); Nitrite,Urine Negative (Negative); Protein,Urine Negative (Negative); Urine Appearance Clear (Clear); Urine Color Yellow (Yellow); Urine Urobilinogen 0.2 eU/dL (<2.0); Urine pH 5.5 (4.5-8.0)
[2021-12-03 04:04] LABS: Arterial Base Excess iSTAT -7 MMOL/L (-2.5-2.5); Arterial Bicarbonate iSTAT 21.5 MMOL/L (20-26); Arterial O2 Saturation iSTAT 96 % (95-100); Arterial PCO2 iSTAT 56 MM HG (35-48); Arterial PO2 iSTAT 99 MM HG (80-95); Arterial Total CO2 iSTAT 23 MMO/L (23-27); Arterial pH iSTAT 7.193 (7.35-7.45)
[2021-12-03] MEDS: SODIUM CHLORIDE 0.9% 1,000 ML IV SCH ×3 (05:03→15:05)
[2021-12-03 05:38] LABS: Basophils % 0.1 % (0.0-0.8); Hematocrit 37.5 VOL% (42.0-52.0); Hemoglobin 11.7 GM/DL (14.0-18.0); Immature Granulocytes % 0.7 %; Immature Granulocytes Absolute 0.06 #; Lymphocytes # 0.7 10*3/uL (1.4-4.0); Mean Corpuscular HGB Conc 31.2 GM/DL (32-36); Mean Corpuscular Volume 94.9 FL (87-102); Mean Platelet Volume 9.3 FL (9.6-12.0); Monocytes # 0.1 10*3/uL (0.11-0.8); Monocytes % 1.5 % (1.7-12.7); Neutrophils % 89.7 % (38.7-73.9); Platelet Count 181 T/CUMM (130-400); Red Blood Count 3.95 MC/CUMM (3.8-5.5); Red Cell Distribution Width 14.6 % (9.3-17.3); White Blood Count 9.2 T/CUMM (4-12)
[2021-12-03 05:48] LABS: INR 1.9; PT Patient Result 19.7 SECS (10.1-12.1)
[2021-12-03 06:10] LABS: Arterial Base Excess iSTAT -6 MMOL/L (-2.5-2.5); Arterial Bicarbonate iSTAT 22.8 MMOL/L (20-26); Arterial O2 Saturation iSTAT 97 % (95-100); Arterial PCO2 iSTAT 60 MM HG (35-48); Arterial PO2 iSTAT 108 MM HG (80-95); Arterial Total CO2 iSTAT 25 MMO/L (23-27); Arterial pH iSTAT 7.191 (7.35-7.45)
[2021-12-03 07:48] LABS: Albumin 3.4 G/DL (3.4-5.0); Bilirubin,Total 0.5 MG/DL (0.20-1.00); Calcium 8.8 MG/DL (8.5-10.1); Total Protein 6.8 G/DL (6.4-8.2)
[2021-12-03 07:51] LABS: Potassium 6.4 MMOL/L (3.5-5.1)
[2021-12-03] MEDS: SODIUM ZIRCONIUM CYCLOSILICATE 10 GM PACK PO SCH ×3 (08:18→20:23)
[2021-12-03] MEDS ORDERED: INSULIN REGULAR 10 UNIT, CALCIUM GLUCONATE 1,000 MG in DEXTROSE 10% 250 ML IV ONE ×3 (09:00→23:00)
[2021-12-03] MEDS ORDERED: ISOSORBIDE MONONITRATE 20 MG TABLET PO SCH (09:00)
[2021-12-03 09:53] LABS: Arterial Base Excess iSTAT -6 MMOL/L (-2.5-2.5); Arterial Bicarbonate iSTAT 21.2 MMOL/L (20-26); Arterial O2 Saturation iSTAT 96 % (95-100); Arterial PCO2 iSTAT 49 MM HG (35-48); Arterial PO2 iSTAT 98 MM HG (80-95); Arterial Total CO2 iSTAT 23 MMO/L (23-27); Arterial pH iSTAT 7.242 (7.35-7.45)
[2021-12-03] MEDS: cefTRIAXone 1,000 MG in SODIUM CHLORIDE 0.9% 100 ML IV SCH (10:36)
[2021-12-03 13:04] LABS: Bilirubin,Total 0.5 MG/DL (0.20-1.00); Osmolality,Calculated 313.8 MOS/KG (273-304); Potassium 5.5 MMOL/L (3.5-5.1); Total Protein 6.6 G/DL (6.4-8.2)
[2021-12-03] MEDS: LACTULOSE 20 GM/30 ML UDCUP PO SCH ×2 (14:02→20:23)
[2021-12-03] MEDS ORDERED: CALCIUM CARBONATE CHEW 500 MG TABLET PO PRN (15:31)
[2021-12-03] MEDS ORDERED: ONDANSETRON 4 MG/2 ML VIAL ONE (16:00)
[2021-12-03] MEDS ORDERED: ONDANSETRON 4 MG/2 ML VIAL IV PRN (16:02)
[2021-12-03] MEDS ORDERED: MORPHINE 2 MG/1 ML SYRINGE IV ONE ×2 (16:05→17:01)
[2021-12-03] MEDS ORDERED: NITROGLYCERIN SL 0.4 MG TABLET SL ONE (16:13)
[2021-12-03] MEDS: NITROGLYCERIN SL 0.4 MG TABLET SL PRN ×3 (16:14→16:24)
[2021-12-03] MEDS ORDERED: ASPIRIN CHEW 81 MG TABLET PO ONE (16:14)
[2021-12-03 16:29] LABS: Arterial Base Excess iSTAT -6 MMOL/L (-2.5-2.5); Arterial Bicarbonate iSTAT 21.3 MMOL/L (20-26); Arterial O2 Saturation iSTAT 89 % (95-100); Arterial PCO2 iSTAT 51 MM HG (35-48); Arterial PO2 iSTAT 68 MM HG (80-95); Arterial Total CO2 iSTAT 23 MMO/L (23-27); Arterial pH iSTAT 7.232 (7.35-7.45)
[2021-12-03] MEDS ORDERED: FUROSEMIDE 40 MG/4 ML VIAL IV ONE (16:52)
[2021-12-03] MEDS ORDERED: FUROSEMIDE 40 MG/4 ML VIAL ONE (16:53)
[2021-12-03] MEDS: AZITHROMYCIN INJ 500 MG in SODIUM CHLORIDE 0.9% 250 ML IV SCH (17:01)
[2021-12-03 17:16] LABS: Osmolality,Calculated 318.3 MOS/KG (273-304); Potassium 5.8 MMOL/L (3.5-5.1)
[2021-12-03] MEDS ORDERED: BUMETANIDE 1 MG/4 ML VIAL IV ONE (17:22)
[2021-12-03] MEDS: NITROGLYCERIN 2% OINT 1 INCH/GM PACK TOP SCH ×2 (17:26→23:34)
[2021-12-03] MEDS: hydrALAZINE 25 MG TABLET PO SCH ×2 (17:40→20:23)
[2021-12-03] MEDS ORDERED: WARFARIN 5 MG TABLET PO SCH (18:00)
[2021-12-03 18:03] VITALS: BP 157/97
[2021-12-03 18:36] LABS: Basophils % 0.2 % (0.0-0.8); Hemoglobin 12.7 GM/DL (14.0-18.0); Immature Granulocytes % 1.1 %; Immature Granulocytes Absolute 0.23 #; Lymphocytes # 1.8 10*3/uL (1.4-4.0); Lymphocytes % 8.4 % (21.2-54.2); Mean Corpuscular HGB Conc 30.2 GM/DL (32-36); Mean Platelet Volume 9.5 FL (9.6-12.0); Monocytes # 0.3 10*3/uL (0.11-0.8); Monocytes % 1.3 % (1.7-12.7); Platelet Count 345 T/CUMM (130-400); Red Blood Count 4.33 MC/CUMM (3.8-5.5); Red Cell Distribution Width 14.9 % (9.3-17.3); White Blood Count 21.1 T/CUMM (4-12)
[2021-12-03 19:19] LABS: Lymphocytes 7 % (20-55); Total Cells Counted 100
[2021-12-03 19:24] LABS: Platelet Estimate Adequate
[2021-12-03] MEDS: SIMVASTATIN 40 MG TABLET PO SCH (20:24)
[2021-12-03 21:39] LABS: Albumin 3.5 G/DL (3.4-5.0); Bilirubin,Total 0.5 MG/DL (0.20-1.00); Calcium 8.8 MG/DL (8.5-10.1); Osmolality,Calculated 321.3 MOS/KG (273-304); Total Protein 7.3 G/DL (6.4-8.2)
[2021-12-03 21:45] LABS: Potassium 6.8 MMOL/L (3.5-5.1)
[2021-12-03] MEDS ORDERED: SODIUM BICARBONATE 50 MEQ/50 ML VIAL IV ONE (21:52)
[2021-12-04] MEDS: ALBUTEROL/IPRATROPIUM 3 ML NEB RESP TX SCH ×3 (00:03→13:34)
[2021-12-04 03:05] LABS: Calcium 8.9 MG/DL (8.5-10.1); Osmolality,Calculated 322.3 MOS/KG (273-304)
[2021-12-04 03:10] LABS: Potassium 6.3 MMOL/L (3.5-5.1)
[2021-12-04 03:13] LABS: Risk Ratio 4.52
[2021-12-04] MEDS ORDERED: SODIUM BICARBONATE 50 MEQ/50 ML VIAL IV ONE (03:17)
[2021-12-04] MEDS ORDERED: INSULIN REGULAR 10 UNIT, CALCIUM GLUCONATE 1,000 MG in DEXTROSE 10% 250 ML IV ONE (03:18)
[2021-12-04 05:16] LABS: Basophils % 0.1 % (0.0-0.8); Hematocrit 36.7 VOL% (42.0-52.0); Hemoglobin 11.2 GM/DL (14.0-18.0); Immature Granulocytes % 0.5 %; Immature Granulocytes Absolute 0.06 #; Lymphocytes # 0.5 10*3/uL (1.4-4.0); Lymphocytes % 4.3 % (21.2-54.2); Mean Corpuscular HGB Conc 30.5 GM/DL (32-36); Mean Corpuscular Volume 96.8 FL (87-102); Mean Platelet Volume 9.6 FL (9.6-12.0); Monocytes # 0.2 10*3/uL (0.11-0.8); Monocytes % 1.5 % (1.7-12.7); Neutrophils % 93.6 % (38.7-73.9); Platelet Count 193 T/CUMM (130-400); Red Blood Count 3.79 MC/CUMM (3.8-5.5); Red Cell Distribution Width 15.1 % (9.3-17.3); White Blood Count 12.3 T/CUMM (4-12)
[2021-12-04 05:39] LABS: Band Neutrophils 2 % (0-10); Lymphocytes 5 % (20-55); Total Cells Counted 100
[2021-12-04 05:40] LABS: Platelet Estimate Adequate
[2021-12-04 05:41] LABS: Calcium 8.9 MG/DL (8.5-10.1)
[2021-12-04 05:47] LABS: Arterial Base Excess iSTAT -3 MMOL/L (-2.5-2.5); Arterial Bicarbonate iSTAT 25.7 MMOL/L (20-26); Arterial O2 Saturation iSTAT 99 % (95-100); Arterial PCO2 iSTAT 61 MM HG (35-48); Arterial PO2 iSTAT 148 MM HG (80-95); Arterial Total CO2 iSTAT 28 MMO/L (23-27); Arterial pH iSTAT 7.231 (7.35-7.45)
[2021-12-04 05:52] LABS: Potassium 6.6 MMOL/L (3.5-5.1)
[2021-12-04] MEDS: methylPREDNISolone SOD SUC 40 MG/1 ML VIAL IV SCH ×3 (05:55→16:40)
[2021-12-04] MEDS: NITROGLYCERIN 2% OINT 1 INCH/GM PACK TOP SCH ×3 (05:55→16:41)
[2021-12-04] MEDS: SODIUM ZIRCONIUM CYCLOSILICATE 10 GM PACK PO SCH ×3 (06:27→20:24)
[2021-12-04 08:31] LABS: INR 2.8; PT Patient Result 28.8 SECS (10.1-12.1)
[2021-12-04] MEDS ORDERED: FUROSEMIDE 40 MG/4 ML VIAL IV ONE (09:26)
[2021-12-04] MEDS ORDERED: INSULIN GLARGINE 100 UNIT/ML SUBCUT SCH (10:00)
[2021-12-04] MEDS: hydrALAZINE 25 MG TABLET PO SCH ×3 (10:12→20:23)
[2021-12-04] MEDS: LACTULOSE 20 GM/30 ML UDCUP PO SCH ×2 (10:12→20:23)
[2021-12-04] MEDS: cefTRIAXone 1,000 MG in SODIUM CHLORIDE 0.9% 100 ML IV SCH (10:16)
[2021-12-04 12:17] LABS: Arterial Base Excess iSTAT 0 MMOL/L (-2.5-2.5); Arterial Bicarbonate iSTAT 27.7 MMOL/L (20-26); Arterial O2 Saturation iSTAT 93 % (95-100); Arterial PCO2 iSTAT 60 MM HG (35-48); Arterial PO2 iSTAT 78 MM HG (80-95); Arterial Total CO2 iSTAT 30 MMO/L (23-27); Arterial pH iSTAT 7.272 (7.35-7.45)
[2021-12-04 12:48] LABS: Calcium 9.5 MG/DL (8.5-10.1); Osmolality,Calculated 321.7 MOS/KG (273-304); Potassium 5.5 MMOL/L (3.5-5.1)
[2021-12-04] MEDS ORDERED: BUMETANIDE 1 MG/4 ML VIAL IV SCH ×2 (14:35→16:00)
[2021-12-04] MEDS ORDERED: MORPHINE 2 MG/1 ML SYRINGE IV PRN ×2 (14:37→14:51)
[2021-12-04 14:53] LABS: CKMB % 12.21 %
[2021-12-04 14:57] LABS: High Sensitive Troponin I* 10801.7 ng/L (0-78)
[2021-12-04] MEDS ORDERED: ALPRAZolam 0.5 MG TABLET PO PRN (16:10)
[2021-12-04] MEDS ORDERED: HALOPERIDOL 5 MG/ML AMP IM ONE (17:06)
[2021-12-04] MEDS: WARFARIN 2.5 MG TABLET PO SCH (17:29)
[2021-12-04] MEDS: AZITHROMYCIN INJ 500 MG in SODIUM CHLORIDE 0.9% 250 ML IV SCH (17:33)
[2021-12-04] MEDS ORDERED: KETOROLAC 15 MG/1 ML VIAL IV ONE (18:28)
[2021-12-04] MEDS ORDERED: ALBUTEROL/IPRATROPIUM 3 ML NEB RESP TX SCH (19:00)
[2021-12-04 19:39] LABS: Calcium 9.2 MG/DL (8.5-10.1); Osmolality,Calculated 323.7 MOS/KG (273-304); Potassium 5.1 MMOL/L (3.5-5.1)
[2021-12-04 19:42] LABS: CKMB % 9.89 %; High Sensitive Troponin I* 5735.2 ng/L (0-78)
[2021-12-04] MEDS: PANTOPRAZOLE 40 MG VIAL IV SCH (20:22)
[2021-12-04] MEDS: SIMVASTATIN 40 MG TABLET PO SCH (20:23)
[2021-12-04] MEDS ORDERED: ASPIRIN EC 81 MG TABLET PO SCH (21:00)
[2021-12-04] MEDS ORDERED: LORazepam 2 MG/1 ML VIAL IV ONE (21:11)
[2021-12-05] MEDS ORDERED: INSULIN LISPRO 100 UNIT/ML SUBCUT SCH
== END 2021-12-04 23:14 | disposition expired | DRG 189 ==
LOC: EDUNIT# → EDBD → N.ED 13:18 → SUATTDRO 16:10 → N.EDINP 16:10 → N.ICU 22:16
PROVIDERS: ADMIT Internal Medicine; ATTEND Family Medicine